=== PATIENT | female | born 1980 | race Hispanic/Latino ===

== ENCOUNTER 2017-05-12 07:06 | Emergency (ER) | payer OTHER ==
[2017-05-12 07:30] VITALS: BMI 21.2
--- NOTE | 2017-05-12 07:56 | OBHP ---
Datetime: 05/12/2017 07:42 IP Admit Plan: Observation/Evaluation Admit Comment, IP Provider: Pt is a 39yo g1 edc 07/06/17 with a IVF . Pt states she awaken ed about 6:15am with vaginal bleeding. She denies cramps, ctxs,srom or decreased fm. Last coitus 3d ays ago. She denies prior episode of vaginal bleeding with current preg pmhx: denies pshx: denies nkda medic: pnv shx: denies etoh, drugs or tobacco I:Third Trimester Bleeding with dark blood and clotted blood in vault. No active bleeding P: US for bpp, cer length, assess placenta nst cbc, t_s Pelvic Type - PN: Adequate Extremities - PN: Normal Abdomen - PN: Normal Back - PN: Normal Lungs - PN: Normal Heart - PN: Normal Neurologic - PN: Normal General - PN: Normal EGA AdmitDate IP: 32.1 Vital Signs Provider: Within Normal Limits IP Chief Complaint: Vaginal bleeding Genitourinary Exam: Normal
[2017-05-12 08:34] LABS: BASO % 0.4 % (0.0-2.0); EOS # 0.1 K/uL (0.0-0.7); EOS % 0.5 % (0.0-4.0); HEMATOCRIT 35.5 % (34.0-47.0); LYMPH # 2.1 K/uL (1.0-4.3); LYMPH % 19.2 % (20.0-40.0); MEAN CELL VOLUME 97.5 fl (81.0-99.0); MEAN CORPUSCULAR HEMOGLOBIN 32.3 pg (27.0-31.0); MEAN CORPUSCULAR HGB CONC 33.2 g/dL (33.0-37.0); MONO # 1.2 K/uL (0.0-0.8); MONO % 10.5 % (0.0-10.0); NEUT # 7.6 K/uL (1.8-7.0); NEUT % 69.4 % (50.0-75.0); RED CELL DISTRIBUTION WIDTH 12.8 % (11.5-14.5); WHITE BLOOD COUNT 10.9 K/uL (4.8-10.8)
--- NOTE | 2017-05-12 11:40 | OBPN ---
Datetime: 05/12/2017 11:30 IP Progress Impression Other: Vaginal bleeding at 32+1 wks IP Progress Plan: Discharge Membranes, Provider: Intact Contraction Comments Provider: none FHR - Baseline A Provider: 120 IP Progress Note Comment: 37 yo G1 at 32+1 wks, IVF-conceived, reports VB, had intercourse on 2016, NST reactive Speculum exam revealed dark clot, no active bleeding per Dr. Gilmore BPP 03/26, placenta posterior free from the cx, CL 4.04 cm Pt discharged home w/ bleeding precautions, rec pelvic rest and avoid vigorous activity Pt has an appoint w/ her PB on , 05/14/2017 NICHD Accel Fetus A IP Provider: [id number] FHR Category Provider Fetus A: Category I NICHD Variability Prov Fetus A: Moderate 6-25bpm NICHD Decel Fetus A IP Provider: None Datetime: 05/12/2017 07:42 Vital Signs Provider: Within Normal Limits
--- NOTE | 2017-05-12 11:43 | OBDCSUM ---
Datetime: 05/12/2017 11:21 Discharged to, Provider: Home Follow up at, Provider: Dr Tellez Disch Instr Activity: Normal activity Disch Instr Diet: Regular Discharge Time: 05/12/2017 11:30 Follow up in weeks, Provider: Next Scheduled appt. 05/14/17 Disch Referrals: None Disch Activity Restrictions: No exercising; No lifting; No sexual activity; Nothing in vagina - Inte rcourse, tampons, douche Discharge Diagnosis Prov Other: Vaginal bleeding at 32+1 wks
--- NOTE | 2017-05-12 11:45 | US ---
PROCEDURE: OB Pelvic Ultrasound HISTORY: vaginal bleed COMPARISON: None available. FINDINGS: UTERUS: Gestational sac: Single intrauterine gestation. Heart rate: 131 bpm. age (Ultrasound estimated): 31 weeks 6 days +/- 2 weeks 2 days Maria Guadalupe-gestational hemorrhage: None. Date of delivery (Ultrasound estimated) : 07/06/2017 Placenta seen at the posterior uterine wall. The uterine cervix is closed measures 4.2 centimeter. The amount of amniotic fluid is adequate. CERVIX: Long and closed. No cervical abnormality seen. RIGHT OVARY: Was not visualized LEFT OVARY: Was not visualized FREE FLUID: None. OTHER FINDINGS: None. IMPRESSION: Single intrauterine live with ultrasound estimated gestational age of 31 weeks 6 days +/- 2 weeks 2 days. Estimated date of delivery by ultrasound is 07/08/2017. Estimated weight 1843 grams +/- 276 grams. Placenta is seen at the posterior wall. The cervix is closed measures 4.2 centimeter.
--- NOTE | 2017-05-12 11:54 | US ---
PROCEDURE: Ultrasound aperistaltic to evaluate biophysical profile HISTORY: vaginal bleeding COMPARISON: No prior similar study available for comparison.. TECHNIQUE: Ultrasound examination of the intrauterine was performed to evaluate the biophysical profile. FINDINGS: The amniotic fluid index is 17.23 centimeter. The heart rate is 131 BPM. The placenta is seen at the posterior wall. The breathing movement score is 2 ,the movement score is to the tones score is 2, and the amniotic fluid score is 2. The total biophysical profile is 8 of 8. IMPRESSION: The total biophysical profile is 8 of 8 as described above.
[2017-05-12 18:58] VITALS: BP 92/54; PULSE 76
== END 2017-05-12 11:30 | disposition home or self-care (01) ==
LOC: H.EROB2 07:06 → H.EROB 07:30 → H.EROB2 11:30
DX: O46.93 Antepartum hemorrhage, unspecified, third trimester (principal); Z3A.32 32 weeks gestation of pregnancy